=== PATIENT | female | born 1995 ===

== ENCOUNTER 2017-01-30 16:42 | Emergency (ER) | payer MEDICAID ==
[2017-01-30 16:43] VITALS: BMI 22.6
[2017-01-30] MEDS ORDERED: Alum-Mag Hydrox-Simethicone Susp (30 mL) PO STA (18:26)
[2017-01-30 18:37] VITALS: PULSE 89; RESP 20; O2SAT 99
[2017-01-30] MEDS ORDERED: Alum-Mag Hydrox-Simethicone Susp (30 mL) ONE (18:37)
[2017-01-30 18:47] VITALS: BP 103/69; TEMP 97.9
[2017-01-30 18:52] LABS: RBC URINE 1 /hpf (0-3); URINE BACTERIA RARE (<OCC); URINE BILIRUBIN NEGATIVE (NEGATIVE); URINE BLOOD 2+ (NEGATIVE); URINE COLOR Yellow (YELLOW); URINE GLUCOSE (UA) NORMAL (Normal); URINE KETONE NEGATIVE (NEGATIVE); URINE LEUKOCYTE ESTERASE NEG Leu/uL (Negative); URINE PROTEIN NEGATIVE (NEGATIVE); URINE UROBILINOGEN NORMAL mg/dL (0.2-1.0); WBC URINE < 1 /hpf (0-5)
--- NOTE | 2017-01-30 19:35 | C.PDOC ---
History Of Present Illness 21 year old female presents to the emergency department with seeking test due to concern from having unprotected sex one month. Patient also notes vague chest discomfort and has has several prior evaluations for similar complaints. She also notes history of acid reflux with severe symptoms for one week when drinking milk. Patient denies any vaginal discharge, abdominal pain, or other complaints at this time. Time Seen by Provider: 01/30/17 18:21 Chief Complaint (Nursing): Chest Pain History Per: Patient History/Exam Limitations: no limitations Onset/Duration Of Symptoms: Hrs (vague chest discomfort ), Persistent (one week of acid reflux symptoms for one week ) Associated Symptoms: denies: Nausea, Dyspnea, Diaphoresis, Syncope Recent travel outside of the [place]: No Additional History Per: Prior Records Past Medical History Reviewed: Historical Data, Nursing Documentation, Vital Signs Vital Signs: Last Vital Signs Temp 97.9 F 01/30/17 18:32 Pulse 89 01/30/17 18:32 Resp 20 01/30/17 18:32 BP 103/69 01/30/17 18:32 Pulse Ox 99 01/30/17 19:35 - Medical History PMH: Anxiety, Asthma, Bronchitis, Depression Family History: States: Unknown Family Hx - Social History Hx Tobacco Use: No Hx Alcohol Use: No Hx Substance Use: No - Immunization History Hx Tetanus Toxoid Vaccination: Yes Hx Influenza Vaccination: Yes Hx Pneumococcal Vaccination: No Review Of Systems Constitutional: Negative for: Fever, Chills Cardiovascular: Positive for: Other (vague chest discomfort ). Negative for: Palpitations Respiratory: Negative for: Cough, Shortness of Breath Gastrointestinal: Negative for: Nausea, Vomiting, Abdominal Pain, Diarrhea Genitourinary: Negative for: Vaginal Discharge Physical Exam - Physical Exam Appears: Non-toxic, No Acute Distress Skin: Warm, Dry Head: Atraumatic Eye(s): bilateral: Normal Inspection, PERRL, EOMI Oral Mucosa: Moist Neck: Supple Chest: Symmetrical, No Deformity, No Tenderness, Other (No chest rash ) Cardiovascular: Rhythm Regular Respiratory: Normal Breath Sounds, No Rhonchi, No Wheezing Gastrointestinal/Abdominal: Soft, No Tenderness, No Distention, No Guarding, No Rebound Neurological/Psych: Oriented x3 ED Course And Treatment - Laboratory Results Lab Interpretation: Normal (ua neg.) Urine POC: Negative ECG: Interpreted By Me ECG Rhythm: Sinus Rhythm ECG Interpretation: Normal Rate From EC O2 Sat by Pulse Oximetry: 99 Pulse Ox Interpretation: Normal Medical Decision Making Medical Decision Making: GERD- continue pepcid/maalox Not , no uti Disposition Doctor Will See Patient In The: Office Counseled Patient/Family Regarding: Studies Performed, Diagnosis - Disposition Referrals: [facility] [Outside] [facility] [Outside] Alen Reyes MD [Staff Provider] - Disposition: HOME/ ROUTINE Disposition Time: 19:34 Condition: GOOD Additional Instructions: GERD: continue pepcid 20 mg @ night to lower stomach acid Maalox 30 cc's (one tablespoon) 5x/day as needed Your test is NEGATIVE Seek further STD evaluation @ the [facility] as needed. Instructions: Gastroesophageal Reflux Disease (ED) Forms: [employer] (Belizean) - Clinical Impression Clinical Impression: Acid reflux, Chest discomfort, Encounter for test - Scribe Statement The provider has reviewed the documentation as recorded by the Scribe Chelly Bowie All medical record entries made by the Scribe were at my direction and personally dictated by me. I have reviewed the chart and agree that the record accurately reflects my personal performance of the history, physical exam, medical decision making, and the department course for this patient. I have also personally directed, reviewed, and agree with the discharge instructions and disposition.
--- NOTE | 2017-02-03 21:47 | CARD ---
APPROVED REPORT EKG Measurement Heart [id number] <Conclusion> Normal sinus rhythm Normal ECG
== END 2017-01-30 19:42 | disposition home or self-care (01) ==
LOC: C.ER 16:42
DX: Z32.02 Encounter for pregnancy test, result negative (principal); K21.9 Gastro-esophageal reflux disease without esophagitis; R07.89 Other chest pain

== ENCOUNTER 2017-06-27 14:27 | Emergency (ER) | payer MEDICAID ==
[2017-06-27 14:27] VITALS: BMI 22.6
[2017-06-27 14:36] VITALS: RESP 20
--- NOTE | 2017-06-27 14:49 | C.PDOC ---
History Of Present Illness 21 year old female with a history of asthma, presents to the ED with complaints of URI symptoms associated with nasal congestion and dry cough for the past 2 weeks. Pt sts, for psat few days was feeling weak, developed chest tightness. Pt admits, no asthma medication at home, ran out. Patient also c/o suprapubic pain, " lower abdominal cramps" for past few days. LNMP- 05/24/17. Otherwise, pt denies high fever, chills, dizziness, drooling, dysphagia, dyspnea, SOB, V/D , back pain, UTI sx, or any other complaints at this time. Time Seen by Provider: 06/27/17 14:35 Chief Complaint (Nursing): Flu-like Symptoms History Per: Patient Onset/Duration Of Symptoms: Gradual Past Medical History Reviewed: Historical Data, Nursing Documentation, Vital Signs Vital Signs: Last Vital Signs Temp 97.9 F 06/27/17 14:36 Pulse 79 06/27/17 14:36 Resp 20 06/27/17 14:36 BP 95/59 L 06/27/17 14:36 Pulse Ox 100 06/27/17 15:57 - Medical History PMH: Anxiety, Asthma, Bronchitis, Depression Surgical History: No Surg Hx Family History: States: Unknown Family Hx - Social History Hx Tobacco Use: No Hx Alcohol Use: No Hx Substance Use: No - Immunization History Hx Tetanus Toxoid Vaccination: Yes Hx Influenza Vaccination: Yes Hx Pneumococcal Vaccination: No Review Of Systems Except As Marked, All Systems Reviewed And Found Negative. Constitutional: Positive for: Chills, Weakness. Negative for: Fever ENT: Positive for: Nose Discharge, Nose Congestion, Throat Pain. Negative for: Ear Discharge Cardiovascular: Negative for: Chest Pain, Palpitations, Edema Respiratory: Positive for: Cough. Negative for: Shortness of Breath, Wheezing Gastrointestinal: Positive for: Abdominal Pain. Negative for: Nausea, Vomiting , Diarrhea Genitourinary: Negative for: Dysuria, Frequency Musculoskeletal: Negative for: Neck Pain, Back Pain Skin: Negative for: Rash Neurological: Negative for: Weakness, Numbness, Altered Mental Status, Headache , Dizziness Physical Exam - Physical Exam Appears: Well, Non-toxic, No Acute Distress Skin: Normal Color, Warm, Dry, No Rash Head: Normacephalic Eye(s): bilateral: PERRL Ear(s): Bilateral: Normal Nose: No Flaring, Discharge (B/L clear) Oral Mucosa: Moist, No Drooling Tongue: Normal Appearing Lips: Normal Appearing Throat: Erythema (mild B/L), No Drooling Neck: Trachea Midline, Supple, Other ((-) meningeal sign) Cardiovascular: Rhythm Regular, No JVD Respiratory: No Decreased Breath Sounds, No Accessory Muscle Use, No Stridor, Wheezing (scattered Right base, BS equal B/L) Gastrointestinal/Abdominal: Soft, Tenderness (mild spurapubic), No Distention, No Guarding Back: No CVA Tenderness Extremity: Normal ROM, No Deformity, No Swelling Neurological/Psych: Oriented x3, Normal Speech ED Course And Treatment - Laboratory Results Result Diagrams: 06/27/17 15:11 06/27/17 15:11 Lab Interpretation: No Acute Changes Urine POC: Negative O2 Sat by Pulse Oximetry: 100 Pulse Ox Interpretation: Normal - Radiology CXR: Interpreted by Me, Viewed By Me CXR Interpretation: Yes: No Acute Disease Progress Note: On re-eval, pt is afebrile, hemodynamicaly stable. Non-toxic. PulseOx 100% RA. ENT: no acute findings. Neck: SUpple, (-) meningeal sign. Lungs: CTA B/L, BS equal B/L. CVS: (+)S1S2, reg. Abd: benign, (-) guarding, (- ) rebound, (-) localized tenderness. back: (-) CVA tenderness. Blood wood review and appears without acute abnoramlities. CXR- normal study. Influenza ( -). UA- normal study. Pt has clinical findings c/w bronchitis, hx of asthma. Pt advised. ref. to f/u with PMD in 2-3 days for re-eavl. return to ED if any worsening or new changes. Disposition Counseled Patient/Family Regarding: Studies Performed, Diagnosis, Need For Followup, Rx Given - Disposition Referrals: Alen Reyes MD [Staff Provider] - Disposition: HOME/ ROUTINE Disposition Time: 16:26 Condition: STABLE Additional Instructions: ENCOURAGE FLUIDS TAKE MEDICATION PRESCRIBED FOLLOW UP WITH PMD IN 2-3 DAYS FOR RE-EVALUATION. RETURN TO ED IF ANY WORSENING OR NEW CHANGES. Prescriptions: Albuterol HFA [Ventolin HFA 90 mcg/actuation (8 g)] 1 puff IH Q6 #1 inhaler Azithromycin 1 tab PO DAILY #4 tab Benzonatate [Tessalon Perle] 100 mg PO TID #14 capsule Prednisone [Deltasone] 40 mg PO DAILY #6 tablet Instructions: Acute Bronchitis (ED), Asthma (ED) Forms: [employer] (Romanian) - Clinical Impression Clinical Impression: Asthma, Bronchitis
[2017-06-27] MEDS ORDERED: Sodium Chloride 0.9% 500 ML IV ONE (14:53)
[2017-06-27] MEDS ORDERED: MethylPREDNISolone 40 mg Vial IVP STA (14:53)
[2017-06-27] MEDS ORDERED: Albuterol-Ipratrop 3 mg / 0.5 (3 ml) UD IH STA (14:53)
[2017-06-27 15:22] LABS: BASO # 0.1 K/uL (0.0-0.2); BASO % 0.5 % (0.0-2.0); EOS # 0.2 K/uL (0.0-0.7); HEMATOCRIT 38.2 % (34.0-47.0); LYMPH # 1.8 K/uL (1.0-4.3); LYMPH % 15.9 % (20.0-40.0); MEAN CELL VOLUME 78.4 fL (81.0-99.0); MEAN CORPUSCULAR HEMOGLOBIN 26.8 pg (27.0-31.0); MEAN CORPUSCULAR HGB CONC 34.1 g/dL (33.0-37.0); MEAN PLATELET VOLUME 8.6 fL (7.2-11.7); MONO # 0.8 K/uL (0.0-0.8); MONO % 7.3 % (0.0-10.0); NRBC % 0.1 % (0.0-2.0); RED CELL DISTRIBUTION WIDTH 14.3 % (11.5-14.5); WHITE BLOOD COUNT 11.4 K/uL (4.8-10.8)
--- NOTE | 2017-06-27 15:44 | RAD ---
HISTORY: COMPARISON: 08/30/2015 TECHNIQUE: Chest PA and lateral FINDINGS: LINES AND TUBES: None. LUNG AND PLEURA: The lungs are well inflated and clear. HEART AND MEDIASTINUM: The heart is not enlarged. The hilar and mediastinal contours are within normal limits. SKELETAL STRUCTURES: The bony structures are within normal limits for the patient's age. VISUALIZED UPPER ABDOMEN: Normal. OTHER FINDINGS: None. IMPRESSION: No active pulmonary disease.
[2017-06-27] MEDS ORDERED: MethylPREDNISolone 40 mg Vial ONE (15:47)
[2017-06-27] MEDS ORDERED: Albuterol-Ipratrop 3 mg / 0.5 (3 ml) UD ONE (15:47)
[2017-06-27 15:49] LABS: BLOOD UREA NITROGEN 13 mg/dL (7-17); CALCIUM 8.4 mg/dl (8.6-10.4); CARBON DIOXIDE 29 mmol/L (22-30); CHLORIDE 101 mmol/L (98-107); GFR AFRICAN-AMERICAN > 60; GLUCOSE,RANDOM 69 mg/dL (65-105); SODIUM 137 mmol/L (132-148)
[2017-06-27 16:16] LABS: RBC URINE 2 /hpf (0-3); TRANSITIONAL EPITHIAL < 1 /hpf (0-3); URINE BACTERIA RARE (<OCC); URINE BILIRUBIN NEGATIVE (NEGATIVE); URINE BLOOD NEGATIVE (NEGATIVE); URINE COLOR Yellow (YELLOW); URINE GLUCOSE (UA) NORMAL (Normal); URINE KETONE NEGATIVE (NEGATIVE); URINE LEUKOCYTE ESTERASE TRACE Leu/uL (Negative); URINE PROTEIN NEGATIVE (NEGATIVE); URINE UROBILINOGEN NORMAL mg/dL (0.2-1.0); WBC URINE 4 /hpf (0-5)
[2017-06-27 17:04] VITALS: BP 102/68; PULSE 64; TEMP 98.1; O2SAT 98
== END 2017-06-27 17:05 | disposition home or self-care (01) ==
LOC: C.ER 14:27
DX: J45.909 Unspecified asthma, uncomplicated (principal); F17.210 Nicotine dependence, cigarettes, uncomplicated
CPT/HCPCS: 71020; 80048; 81001; 84703; 85025; 87086; 87804; 96361; 96374; 96375; 99283; J1885; J2920; J7040

== ENCOUNTER 2017-11-08 20:40 | Emergency (ER) | payer MEDICAID ==
[2017-11-08 20:40] VITALS: BMI 22.6
[2017-11-08 21:31] VITALS: BP 109/70; PULSE 82; RESP 20; TEMP 98.3; O2SAT 100
[2017-11-08 21:58] LABS: SQUAMOUS EPITHIAL 1 /hpf (0-5); URINE BILIRUBIN NEGATIVE (NEGATIVE); URINE BLOOD NEGATIVE (NEGATIVE); URINE CLARITY Clear (Clear); URINE COLOR Yellow (YELLOW); URINE GLUCOSE (UA) NORMAL (Normal); URINE LEUKOCYTE ESTERASE NEG Leu/uL (Negative); URINE PROTEIN NEGATIVE (NEGATIVE); URINE UROBILINOGEN NORMAL mg/dL (0.2-1.0)
[2017-11-08 22:02] LABS: HCG,QUALITATIVE URINE NEGATIVE (NEGATIVE)
[2017-11-08] MEDS ORDERED: cefTRIAXone (Rocephin) 250 mg Inj IM STA (23:40)
--- NOTE | 2017-11-09 00:28 | C.PDOC ---
History Of Present Illness 22yo female, presents to ED with complaints of persistent UTI symptoms. Patient states she was evaluated by her OBGYN, diagnosed with a UTI and for the past 2 months she has been taking antibiotics intermittently with no resolution in symptoms. She also reports for the past 2 weeks, she has been having lower abdominal pain, vaginal discharge and dysuria. She states she is sexually active with one partner and does not use protection. She denies any fever, chills, vaginal bleeding and offers no other complaints. Time Seen by Provider: 11/08/17 23:05 Chief Complaint (Nursing): Abdominal Pain History Per: Patient History/Exam Limitations: no limitations Onset/Duration Of Symptoms: Intermittent Episodes, Persistent Current Symptoms Are (Timing): Still Present Location Of Pain/Discomfort: Suprapubic Associated Symptoms: Urinary Symptoms. denies: Fever, Chills Past Medical History Reviewed: Historical Data, Nursing Documentation, Vital Signs Vital Signs: Last Vital Signs Temp 98.3 F 11/08/17 21:27 Pulse 82 11/08/17 21:27 Resp 20 11/08/17 21:27 BP 109/70 11/08/17 21:27 Pulse Ox 100 11/09/17 12:48 - Medical History PMH: Anxiety, Asthma, Bronchitis, Depression Surgical History: No Surg Hx Family History: States: No Known Family Hx, Unknown Family Hx - Social History Hx Tobacco Use: No Hx Alcohol Use: No Hx Substance Use: No - Immunization History Hx Tetanus Toxoid Vaccination: Yes Hx Influenza Vaccination: Yes Hx Pneumococcal Vaccination: No Review Of Systems Except As Marked, All Systems Reviewed And Found Negative. Constitutional: Negative for: Fever, Chills Gastrointestinal: Positive for: Abdominal Pain (suprapubic) Genitourinary: Positive for: Dysuria, Frequency, Vaginal Discharge. Negative for: Vaginal Bleeding Physical Exam - Physical Exam Appears: Non-toxic, No Acute Distress Skin: Normal Color, Warm, Dry Head: Atraumatic, Normacephalic Eye(s): bilateral: Normal Inspection, PERRL Oral Mucosa: Moist Neck: Normal ROM, Supple Chest: Symmetrical Cardiovascular: Rhythm Regular Respiratory: Normal Breath Sounds Gastrointestinal/Abdominal: Normal Exam, Soft, No Tenderness Pelvic: Vaginal Discharge (fishy discharge), No Cervical Motion Tenderness Extremity: Normal ROM Neurological/Psych: Oriented x3 ED Course And Treatment O2 Sat by Pulse Oximetry: 100 (RA) Pulse Ox Interpretation: Normal Progress Note: Patient given Motrin, Rocephin and Zithromax in ER. Chlamydia and GC cultures sent. Patinet to be discharged home on antibiotics and instructed to follow up with OBGYN in 2-3 days. Disposition Counseled Patient/Family Regarding: Diagnosis, Need For Followup, Rx Given - Disposition [facility]Outside] Disposition: HOME/ ROUTINE Disposition Time: 00:25 Condition: STABLE Additional Instructions: Follow up with your BUSINESS DIVISION CHAIR doctor Follow up with PMD Return to ER if worse Prescriptions: metroNIDAZOLE [Flagyl] 500 mg PO BID #14 tab Instructions: Bacterial Vaginosis (DC) Forms: [employer] (Croatian) - POA Present On Arrival: Blood Incompatibility - Clinical Impression Clinical Impression: Cervicitis, Bacterial vaginosis - PA / RN PERIOPERATIVE / Resident Statement MD/DO has reviewed & agrees with the documentation as recorded. - Scribe Statement The provider has reviewed the documentation as recorded by the Scribe (Ro Guzman) Provider Attestation: All medical record entries made by the Scribe were at my direction and personally dictated by me. I have reviewed the chart and agree that the record accurately reflects my personal performance of the history, physical exam, medical decision making, and the department course for this patient. I have also personally directed, reviewed, and agree with the discharge instructions and disposition.
== END 2017-11-09 00:33 | disposition home or self-care (01) ==
LOC: C.ER 20:40
DX: N72 Inflammatory disease of cervix uteri (principal); N76.0 Acute vaginitis; B96.89 Other specified bacterial agents as the cause of diseases classified elsewhere
CPT/HCPCS: 81001; 84703; 87491; 87591; 96372; 99284; J0696

== ENCOUNTER 2018-04-18 19:53 | Emergency (ER) | payer MEDICAID ==
[2018-04-18 19:53] VITALS: BMI 22.6
[2018-04-18 20:03] VITALS: BP 112/64; PULSE 78; RESP 16; TEMP 98.6; O2SAT 98
[2018-04-18] MEDS ORDERED: MethylPREDNISolone 40 mg Vial IVP STA (20:31)
[2018-04-18] MEDS ORDERED: DiphenhydrAMINE 50 mg/ml Inj IVP STA (20:31)
[2018-04-18] MEDS ORDERED: DiphenhydrAMINE 50 mg/ml Inj ONE (20:35)
--- NOTE | 2018-04-18 21:56 | C.PDOC ---
History Of Present Illness 22 year old female presents to the ED c/o generalized itching, tongues swelling and throat itching that starred tonight. Patient states she is allergic to pepper, patient reports she accidentally ate spicy food today. Patient denies fever, chills, nausea, vomit, SOB, cough, dizziness. Time Seen by Provider: 04/18/18 20:18 Chief Complaint (Nursing): Allergic Reaction History Per: Patient History/Exam Limitations: no limitations Onset/Duration Of Symptoms: Hrs Current Symptoms Are (Timing): Still Present Context: Food Possible Cause: Food Associated Symptoms: Skin Rash, Swelling, Itching Home/EMS Treatment: None Recent travel outside of the [place]: No Additional History Per: Patient Past Medical History Reviewed: Historical Data, Nursing Documentation, Vital Signs Vital Signs: Last Vital Signs Temp 98.6 F 04/18/18 19:55 Pulse 78 04/18/18 19:55 Resp 16 04/18/18 19:55 BP 112/64 04/18/18 19:55 Pulse Ox 98 04/18/18 19:55 - Medical History PMH: Anxiety, Asthma, Bronchitis, Depression Surgical History: No Surg Hx Family History: States: Unknown Family Hx - Social History Hx Tobacco Use: No Hx Alcohol Use: Yes Hx Substance Use: No - Immunization History Hx Tetanus Toxoid Vaccination: Yes Hx Influenza Vaccination: Yes Hx Pneumococcal Vaccination: No Review Of Systems Constitutional: Negative for: Fever, Chills ENT: Positive for: Mouth Swelling, Throat Swelling Respiratory: Negative for: Cough, Shortness of Breath Gastrointestinal: Negative for: Nausea, Vomiting Skin: Positive for: Rash Neurological: Negative for: Weakness, Numbness Physical Exam - Physical Exam Appears: Non-toxic, No Acute Distress Skin: Normal Color, Warm, Dry, Rash (diffuse urticaria) Head: Atraumatic, Normacephalic Eye(s): bilateral: Normal Inspection Oral Mucosa: Moist Tongue: No Swelling Lips: No Swelling Throat: Normal, No Erythema, No Exudate, No Drooling Neck: Normal ROM, No Midline Cervical Tenderness, Supple Chest: Symmetrical Cardiovascular: Rhythm Regular Respiratory: Normal Breath Sounds, No Rales, No Rhonchi, No Wheezing Extremity: Normal ROM Neurological/Psych: Oriented x3, Normal Speech, Normal Cognition Gait: Steady ED Course And Treatment O2 Sat by Pulse Oximetry: 98 (ON RA) Pulse Ox Interpretation: Normal Progress Note: Plan: - Benadryl 25 mg iVP. - Pepcid 20 mg IVP. - Solumedrol 125 mg IVP. Patient was advised to follow up with PMD. Patient reports feeling better after medications, no longer feeling itchy, SOB or having difficulty breathing. Disposition Counseled Patient/Family Regarding: Diagnosis, Need For Followup - Disposition Disposition: HOME/ ROUTINE Disposition Time: 21:51 Condition: STABLE Additional Instructions: Please follow up with PMD Take all medications prescribed Return to ER if worse Prescriptions: DiphenhydrAMINE [Benadryl] 25 mg PO QID #20 cap Famotidine [Pepcid] 20 mg PO DAILY #10 tab predniSONE [Prednisone] 40 mg PO DAILY #8 tab Instructions: Hives Forms: [employer] (American) - Clinical Impression Clinical Impression: Allergic reaction - PA / SURVEY TECHNICIAN / Resident Statement MD/DO has reviewed & agrees with the documentation as recorded. - Scribe Statement The provider has reviewed the documentation as recorded by the Scribe Adrien Hamilton All medical record entries made by the Sarahibmelissa were at my direction and personally dictated by me. I have reviewed the chart and agree that the record accurately reflects my personal performance of the history, physical exam, medic al decision making, and the department course for this patient. I have also personally directed, reviewed, and agree with the discharge instructions and disposition.
== END 2018-04-18 22:21 | disposition home or self-care (01) ==
LOC: C.ER 19:53
DX: T78.40XA Allergy, unspecified, initial encounter (principal)
CPT/HCPCS: 96374; 96375; 99284; J1200; J2920

== ENCOUNTER 2018-05-02 14:47 | Emergency (ER) | payer MEDICAID ==
[2018-05-02 14:48] VITALS: BMI 22.6
[2018-05-02 14:55] VITALS: BP 119/72; PULSE 66; RESP 18; TEMP 98.4; O2SAT 99
--- NOTE | 2018-05-02 15:04 | C.PDOC ---
History Of Present Illness 22 y/o female presents to the ED complaining of recurrent allergic reaction today. Patient states symptoms began after accidental exposure to pepper. Patient was seen 04/18 for similar complaint but states did not take prednisone, it went away by itself and I did not know what it was for. Otherwise denies any SOB, tongue/throat swelling, nausea, vomiting, or other associated symptoms. Time Seen by Provider: 05/02/18 14:57 Chief Complaint (Nursing): Allergic Reaction History Per: Patient History/Exam Limitations: no limitations Onset/Duration Of Symptoms: Hrs Current Symptoms Are (Timing): Still Present Past Medical History Reviewed: Historical Data, Nursing Documentation, Vital Signs Vital Signs: Last Vital Signs Temp 98.4 F 05/02/18 14:54 Pulse 66 05/02/18 14:54 Resp 18 05/02/18 14:54 BP 119/72 05/02/18 14:54 Pulse Ox 99 05/02/18 14:54 - Medical History PMH: Anxiety, Asthma, Bronchitis, Depression Family History: States: Unknown Family Hx - Social History Hx Tobacco Use: No Hx Alcohol Use: Yes Hx Substance Use: No - Immunization History Hx Tetanus Toxoid Vaccination: Yes Hx Influenza Vaccination: Yes Hx Pneumococcal Vaccination: No Review Of Systems Except As Marked, All Systems Reviewed And Found Negative. ENT: Negative for: Mouth Swelling, Throat Swelling Respiratory: Negative for: Shortness of Breath Gastrointestinal: Negative for: Nausea, Vomiting Skin: Positive for: Other (Itchiness) Physical Exam - Physical Exam Appears: Non-toxic, No Acute Distress Skin: Warm, Dry, Other (Generalized hives, active scratching self) Head: Atraumatic, Normacephalic Eye(s): bilateral: Normal Inspection, PERRL, EOMI Oral Mucosa: Moist Tongue: No Swelling, Other (No angioedema) Lips: Normal Appearing, No Swelling Throat: Normal (airway is patent), No Erythema, No Drooling Chest: Symmetrical Cardiovascular: Rhythm Regular Respiratory: No Accessory Muscle Use, Other (NARD) Pulses: Left Radial: Normal, Right Radial: Normal Neurological/Psych: Oriented x3, Normal Speech ED Course And Treatment O2 Sat by Pulse Oximetry: 99 (RA) Pulse Ox Interpretation: Normal Medical Decision Making Medical Decision Making: Impression: allergic reaction Patient given 50 mg Benadryl PO and 60 mg Prednisone PO. Patient remains AAOx3, breathing easy and non-labored, in no acute distress. Reports feeling better after treatment. Plan is to discharge patient home. Provided with prescriptions for PO steroid and benadryl. Disposition Counseled Patient/Family Regarding: Diagnosis, Need For Followup, Rx Given - Disposition Referrals: YOUR,PMD [Other] Disposition: HOME/ ROUTINE Disposition Time: 15:03 Condition: IMPROVED Prescriptions: DiphenhydrAMINE [Benadryl] 50 mg PO TID PRN #30 cap PRN Reason: Itching / Pruritus predniSONE [Prednisone] 60 mg PO DAILY #12 tab Instructions: Hives (DC) Forms: [employer] (New Zealander) - POA Present On Arrival: None - Clinical Impression Clinical Impression: Urticaria - Scribe Statement The provider has reviewed the documentation as recorded by the Scribe (Glory Julio) Provider Attestation: All medical record entries made by the Scribe were at my direction and personally dictated by me. I have reviewed the chart and agree that the record accurately reflects my personal performance of the history, physical exam, medical decision making, and the department course for this patient. I have also personally directed, reviewed, and agree with the discharge instructions and disposition.
== END 2018-05-02 15:12 | disposition home or self-care (01) ==
LOC: C.ER 14:47
DX: L50.9 Urticaria, unspecified (principal)

== ENCOUNTER 2018-05-10 02:50 | Emergency (ER) | payer MEDICAID ==
[2018-05-10 02:50] VITALS: BMI 22.6
--- NOTE | 2018-05-10 03:13 | C.PDOC ---
History Of Present Illness Patient presents to the ER with a complaint of feeling weak, lightheaded, and SOB worsening over the last day or so. Patient has a Hx of anxiety. She is currently speaking in complete sentences. Denies chest pain, fever, chills, naus ea, or vomiting. Time Seen by Provider: 05/10/18 03:13 Chief Complaint (Nursing): Dizziness/Lightheaded History Per: Patient History/Exam Limitations: no limitations Onset/Duration Of Symptoms: Days Current Symptoms Are (Timing): Still Present Associated Symptoms Preceding Syncopal Episode: No Predromal Symptoms (Sudden Onset) Seizure Or Post-ictal Symptoms: None Possible Causative Factor(s): Other (Anxiety) Fall Associated With With Symptoms: No Severity: Mild Pain Scale Rating Of: 3 Recent travel outside of the [place]: No - Symptoms Of CVA Associated Symptoms: denies: Impaired Speech, Seizure Activity, New Vision Deficit(Left), New Vision Deficit(Right), Decreased Ability To Walk, New Confusion Past Medical History Reviewed: Historical Data, Nursing Documentation, Vital Signs Vital Signs: Last Vital Signs Temp 98.3 F 05/10/18 02:55 Pulse 74 05/10/18 02:55 Resp 14 05/10/18 02:55 BP 95/48 L 05/10/18 02:55 Pulse Ox 99 05/10/18 02:55 - Medical History PMH: Anxiety, Asthma, Bronchitis, Depression Family History: States: No Known Family Hx - Social History Hx Tobacco Use: No Hx Alcohol Use: Yes Hx Substance Use: No - Immunization History Hx Tetanus Toxoid Vaccination: Yes Hx Influenza Vaccination: Yes Hx Pneumococcal Vaccination: No Review Of Systems Constitutional: Positive for: Weakness. Negative for: Fever, Chills Cardiovascular: Positive for: Light Headedness. Negative for: Chest Pain Respiratory: Positive for: Shortness of Breath Gastrointestinal: Negative for: Nausea, Vomiting Physical Exam - Physical Exam Appears: Non-toxic Skin: Warm, Dry Head: Normacephalic Oral Mucosa: Moist Chest: Symmetrical, No Tenderness Cardiovascular: Rhythm Regular Respiratory: No Rales, No Rhonchi, No Wheezing Gastrointestinal/Abdominal: Soft, No Tenderness Neurological/Psych: Oriented x3 ED Course And Treatment - Laboratory Results Result Diagrams: 05/10/18 03:48 05/10/18 03:48 ECG: Interpreted By Me, Viewed By Me ECG Rhythm: Sinus Rhythm (71), Nonspecific Changes O2 Sat by Pulse Oximetry: 99 (Room air) Pulse Ox Interpretation: Normal Progress Note: EKG, blood work, and urinalysis ordered. IV fluids administered. Reevaluation Time: 04:43 Reassessment Condition: Improved Disposition Counseled Patient/Family Regarding: Studies Performed, Diagnosis, Need For Followup, Rx Given - Disposition Referrals: Alen Reyes MD [Staff Provider] - Disposition: HOME/ ROUTINE Disposition Time: 03:13 Condition: FAIR Additional Instructions: Please return if symptoms recur Prescriptions: Lorazepam [Ativan] 0.5 mg PO BID PRN #10 tab PRN Reason: Anxiety Instructions: Anxiety, Adult (DC) Forms: [employer] (Croatian) - Clinical Impression Clinical Impression: Anxiety - Scribe Statement The provider has reviewed the documentation as recorded by the Scribe Farrukh Baker All medical record entries made by the Scribe were at my direction and personally dictated by me. I have reviewed the chart and agree that the record accurately reflects my personal performance of the history, physical exam, medical decision making, and the department course for this patient. I have also personally directed, reviewed, and agree with the discharge instructions and disposition.
[2018-05-10] MEDS ORDERED: Sodium Chloride 0.9% 1,000 ML IV ONE (03:28)
[2018-05-10 03:45] LABS: SQUAMOUS EPITHIAL 1 /hpf (0-5); URINE BILIRUBIN NEGATIVE (NEGATIVE); URINE BLOOD NEGATIVE (NEGATIVE); URINE CLARITY Clear (Clear); URINE COLOR Yellow (YELLOW); URINE GLUCOSE (UA) NORMAL (Normal); URINE LEUKOCYTE ESTERASE NEG Leu/uL (Negative); URINE PROTEIN NEGATIVE (NEGATIVE); URINE UROBILINOGEN NORMAL mg/dL (0.2-1.0)
[2018-05-10 03:50] LABS: HCG,QUALITATIVE URINE NEGATIVE (NEGATIVE)
[2018-05-10 04:01] LABS: BASO # 0.1 K/uL (0.0-0.2); BASO % 0.5 % (0.0-2.0); EOS # 0.1 K/uL (0.0-0.7); EOS % 1.2 % (0.0-4.0); HEMOGLOBIN 12.5 g/dL (11.0-16.0); LYMPH # 4.3 K/uL (1.0-4.3); LYMPH % 35.6 % (20.0-40.0); MEAN CELL VOLUME 79.8 fL (81.0-99.0); MEAN CORPUSCULAR HEMOGLOBIN 27.9 pg (27.0-31.0); MEAN PLATELET VOLUME 8.4 fL (7.2-11.7); MONO # 0.9 K/uL (0.0-0.8); MONO % 7.7 % (0.0-10.0); NEUT # 6.6 K/uL (1.8-7.0); RBC 4.49 Mil/uL (3.80-5.20); RED CELL DISTRIBUTION WIDTH 13.4 % (11.5-14.5); WHITE BLOOD COUNT 11.9 K/uL (4.8-10.8)
[2018-05-10 04:10] LABS: ALB/GLOB RATIO 1.6 (1.0-2.1); ALT/SGPT 33 U/L (9-52); AST/SGOT 26 U/L (14-36); BLOOD UREA NITROGEN 20 mg/dL (7-17); CALCIUM 8.8 mg/dl (8.6-10.4); GFR NON-AFRICAN AMERICAN > 60
[2018-05-10 04:21] LABS: BARBITURATES, UR NEGATIVE (NEGATIVE); BENZODIAZEPINES, UR NEGATIVE (NEGATIVE); OPIATES, UR NEGATIVE (NEGATIVE); PHENCYCLIDINE, UR NEGATIVE (NEGATIVE)
[2018-05-10 04:35] VITALS: BP 98/66; PULSE 63; RESP 16; TEMP 98
[2018-05-10 04:43] VITALS: O2SAT 99
--- NOTE | 2018-05-11 19:44 | CARD ---
APPROVED REPORT Date of service: 05/10/2018 EKG Measurement Heart [id number] <Conclusion> Normal sinus rhythm with sinus arrhythmia Normal ECG
== END 2018-05-10 04:50 | disposition home or self-care (01) ==
LOC: C.ER 02:50
DX: F41.9 Anxiety disorder, unspecified (principal); F32.9 Major depressive disorder, single episode, unspecified; J45.909 Unspecified asthma, uncomplicated
CPT/HCPCS: 80053; 80324; 80345; 80346; 80349; 80353; 80358; 80361; 81001; 83992; 84443; 84703; 85025; 93005; 96360; 99285; J7030

== ENCOUNTER 2018-07-24 18:36 | Emergency (ER) | payer MEDICAID | END 2018-07-24 22:23 | disposition home or self-care (01) | LOC: C.ER 18:36 ==

== ENCOUNTER 2018-08-08 23:59 | Emergency (ER) | payer MEDICAID ==
[2018-08-08 23:59] VITALS: BMI 22.6
[2018-08-09 00:25] VITALS: PULSE 78; O2SAT 98
[2018-08-09] MEDS ORDERED: Sodium Chloride 0.9% 1,000 ML IV ONE (00:35)
--- NOTE | 2018-08-09 00:35 | C.PDOC ---
History Of Present Illness Patient who is 5-6 weeks presents to the ER with a complaint of abdominal pain, nausea, vomiting, and decreased po intake. Denies fever or chills. Time Seen by Provider: 08/09/18 00:34 Chief Complaint (Nursing): Abdominal Pain History Per: Patient History/Exam Limitations: no limitations Onset/Duration Of Symptoms: Hrs Current Symptoms Are (Timing): Still Present Severity: Moderate Pain Scale Rating Of: 4 Location Of Pain/Discomfort: Diffuse, Epigastric Radiation Of Pain To:: None Quality Of Discomfort: Unable To Describe Associated Symptoms: Nausea, Vomiting. denies: Fever, Chills Exacerbating Factors: None Alleviating Factors: None Recent travel outside of the [place]: No Past Medical History Reviewed: Historical Data, Nursing Documentation, Vital Signs Vital Signs: Last Vital Signs Temp 98.8 F 08/09/18 00:23 Pulse 78 08/09/18 00:23 Resp 16 08/09/18 00:23 BP 114/75 08/09/18 00:23 Pulse Ox 98 08/09/18 00:23 - Medical History PMH: Anxiety, Asthma, Bronchitis, Depression Family History: States: No Known Family Hx - Social History Hx Tobacco Use: No Hx Alcohol Use: Yes Hx Substance Use: No - Immunization History Hx Tetanus Toxoid Vaccination: Yes Hx Influenza Vaccination: Yes (2018) Hx Pneumococcal Vaccination: No Review Of Systems Constitutional: Negative for: Fever, Chills Cardiovascular: Negative for: Chest Pain, Palpitations Respiratory: Negative for: Cough, Shortness of Breath Gastrointestinal: Positive for: Nausea, Vomiting, Abdominal Pain Neurological: Negative for: Weakness, Numbness Physical Exam - Physical Exam Appears: Non-toxic Skin: Warm, Dry Head: Normacephalic Oral Mucosa: Moist Neck: Trachea Midline, Supple Chest: Symmetrical, No Tenderness Cardiovascular: Rhythm Regular Respiratory: No Rales, No Rhonchi, No Wheezing Gastrointestinal/Abdominal: Soft, Tenderness (Diffuse, mid epigastric), No Guarding, No Rebound Back: No CVA Tenderness Neurological/Psych: Oriented x3 ED Course And Treatment - Laboratory Results Result Diagrams: 08/09/18 01:23 08/09/18 01:23 O2 Sat by Pulse Oximetry: 98 (Room air) Pulse Ox Interpretation: Normal Progress Note: Blood work, urinalysis, and transvaginal US ordered. Pepcid, zofran, and IV fluids administered. Disposition Counseled Patient/Family Regarding: Studies Performed, Diagnosis, Need For Followup - Disposition Disposition: HOME/ ROUTINE Disposition Time: 00:34 Condition: FAIR Additional Instructions: Please follow up with your grader meat Prescriptions: Metoclopramide [Reglan] 1 tab PO TID PRN #25 tab PRN Reason: Nausea/Vomiting Instructions: - The Second Month, Ovarian Cyst (DC), Nausea and Vomiting of (DC) Forms: [employer] (Georgian) - Clinical Impression Clinical Impression: Hyperemesis arising during , Corpus luteum cyst - Scribe Statement The provider has reviewed the documentation as recorded by the Scribmelissa Baker All medical record entries made by the Sarahibmelissa were at my direction and personally dictated by me. I have reviewed the chart and agree that the record accurately reflects my personal performance of the history, physical exam, medical decision making, and the department course for this patient. I have also personally directed, reviewed, and agree with the discharge instructions and disposition.
[2018-08-09 01:28] LABS: BASO # 0.1 K/uL (0.0-0.2); BASO % 0.6 % (0.0-2.0); EOS # 0.1 K/uL (0.0-0.7); EOS % 1.3 % (0.0-4.0); HEMOGLOBIN 12.2 g/dL (11.0-16.0); LYMPH # 2.5 K/uL (1.0-4.3); MEAN CELL VOLUME 80.8 fL (81.0-99.0); MEAN CORPUSCULAR HEMOGLOBIN 27.7 pg (27.0-31.0); MEAN CORPUSCULAR HGB CONC 34.3 g/dL (33.0-37.0); MEAN PLATELET VOLUME 9.7 fL (7.2-11.7); MONO # 0.6 K/uL (0.0-0.8); MONO % 6.4 % (0.0-10.0); NEUT % 64.7 % (50.0-75.0); RBC 4.42 Mil/uL (3.80-5.20); RED CELL DISTRIBUTION WIDTH 13.2 % (11.5-14.5); WHITE BLOOD COUNT 9.3 K/uL (4.8-10.8)
[2018-08-09 01:34] LABS: HCG,QUALITATIVE URINE POSITIVE (NEGATIVE); SQUAMOUS EPITHIAL 3 /hpf (0-5); URINE BACTERIA RARE (<OCC); URINE BILIRUBIN NEGATIVE (NEGATIVE); URINE BLOOD NEGATIVE (NEGATIVE); URINE CLARITY Hazy (Clear); URINE COLOR Yellow (YELLOW); URINE GLUCOSE (UA) NORMAL (Normal); URINE LEUKOCYTE ESTERASE TRACE Leu/uL (Negative); URINE PROTEIN NEGATIVE (NEGATIVE); URINE UROBILINOGEN NORMAL mg/dL (0.2-1.0)
[2018-08-09 01:38] LABS: INR 1.1; PROTHROMBIN TIME 12.1 SECONDS (9.7-12.2)
[2018-08-09 01:48] LABS: ALB/GLOB RATIO 1.6 (1.0-2.1); ALBUMIN 4.4 g/dL (3.5-5.0); ALT/SGPT 11 U/L (9-52); AST/SGOT 40 U/L (14-36); BLOOD UREA NITROGEN 16 mg/dL (7-17); CALCIUM 8.7 mg/dl (8.6-10.4); GFR NON-AFRICAN AMERICAN > 60; LIPASE 102 U/L (23-300)
[2018-08-09 04:06] VITALS: BP 141/74; RESP 17; TEMP 98.6
--- NOTE | 2018-08-09 11:34 | US ---
Indication: abd pain, n/v Comparison: Ob transvaginal ultrasound performed 07/24/18 Technique: Transabdominal pelvic ultrasound. Findings: The uterus measures approximately 10.7 x 5.9 x 5.3 cm. Anteverted. Cervix length measures approximately 3.1 cm. There is a single intrauterine fetus present. 2 mm yolk sac. The gestational sac measures 2.2 cm and is compatible with a gestational age of 6 weeks 6 days. The crown-rump length measures 0.9 cm and is compatible with a gestational age of 7 weeks 0 days. There is heart motion which measured 122.1 BPM. The right ovary measures 2.8 x 2.5 x 2.7 cm. The left ovary measures 3.2 x 2.0 x 3.4 cm and contains 1.2 x 1.0 x 1.2 cm probable corpus luteal cyst. Blood flow was demonstrated to both ovaries. Impression: Live single intrauterine with estimated gestational age 6 weeks 6 days by gestational sac calculation and 7 weeks 0 days by crown-rump length calculation. heart rate 122.1 bpm. Advise an anomaly screen at 16-18 weeks gestational age 1.2 x 1.0 x 1.2 cm probable left ovarian corpus luteal cyst. Preliminary impression was provided by [employer].
== END 2018-08-09 04:05 | disposition home or self-care (01) ==
LOC: C.ER 23:59
DX: O21.0 Mild hyperemesis gravidarum (principal); O26.891 Other specified pregnancy related conditions, first trimester; N83.10 Corpus luteum cyst of ovary, unspecified side; Z3A.01 Less than 8 weeks gestation of pregnancy
CPT/HCPCS: 76801; 80053; 81001; 81025; 83690; 84702; 84703; 85025; 85610; 85730; 96374; 96375; 99283; J2405; J7030

== ENCOUNTER 2018-10-08 18:00 | Emergency (ER) | payer MEDICAID ==
[2018-10-08 18:20] VITALS: BMI 32.1
[2018-10-08] MEDS ORDERED: Albuterol 0.083% Inhal Sol (2.5 mg/3 mL) UD INH PRN (19:13)
[2018-10-08] MEDS ORDERED: Dexamethasone 4 mg/1 ml IM STA (19:16)
--- NOTE | 2018-10-08 19:25 | C.PDOC ---
History Of Present Illness 22 y/o female pt with hx of asthma presents to the ER c/o cough with yellow sputum, subjective fever, chest pain, SOB and sore throat for x1 day. Pt reports she has +sick contact from her son. Pt has no other complaints at this time. Time Seen by Provider: 10/08/18 19:01 Chief Complaint (Nursing): Cough, Cold, Congestion History Per: Patient History/Exam Limitations: no limitations Onset/Duration Of Symptoms: Days (x1) Current Symptoms Are (Timing): Still Present Past Medical History Reviewed: Historical Data, Nursing Documentation, Vital Signs Vital Signs: Last Vital Signs Temp 99.4 F 10/08/18 18:10 Pulse 96 H 10/08/18 18:10 Resp 20 10/08/18 18:10 BP 131/75 10/08/18 18:10 Pulse Ox 97 10/08/18 18:10 - Medical History PMH: Anxiety, Asthma, Bronchitis, Depression, Chronic Kidney Disease Family History: States: No Known Family Hx - Social History Hx Tobacco Use: No Hx Alcohol Use: Yes Hx Substance Use: No (Denied) - Immunization History Hx Tetanus Toxoid Vaccination: Yes Hx Influenza Vaccination: Yes (2018) Hx Pneumococcal Vaccination: No Review Of Systems Except As Marked, All Systems Reviewed And Found Negative. Constitutional: Positive for: Fever (subjective) ENT: Positive for: Throat Pain Cardiovascular: Positive for: Chest Pain Respiratory: Positive for: Cough, Shortness of Breath, Sputum (yellow ) Physical Exam - Physical Exam Appears: Non-toxic, No Acute Distress Skin: Warm, Dry, No Rash Head: Normacephalic Eye(s): bilateral: Normal Inspection Ear(s): Bilateral: Normal Nose: Normal Oral Mucosa: Moist Throat: Normal, Erythema (mild), No Exudate, No Drooling Neck: Normal ROM, Supple Chest: Symmetrical, No Deformity Cardiovascular: Rhythm Regular Respiratory: Normal Breath Sounds Gastrointestinal/Abdominal: Soft, No Tenderness Extremity: Normal ROM (x4) Neurological/Psych: Oriented x3, Normal Speech ED Course And Treatment O2 Sat by Pulse Oximetry: 97 (RA) Pulse Ox Interpretation: Normal Medical Decision Making Medical Decision Making: Plans: -- albuterol -- decadron Pt reports she is feeling better. Pt is stabilized for discharge. Disposition - Disposition Referrals: [facility] at [facility] [Outside] [facility] at [facility] [Outside] [facility] [Outside] Disposition: HOME/ ROUTINE Disposition Time: 20:50 Condition: GOOD Prescriptions: Albuterol HFA [Ventolin HFA 90 mcg/actuation (8 g)] 2 puff IH [id number] #240 puff Albuterol 0.083% [Albuterol 0.083% Inhal Juany (2.5 mg/3 ml) UD] 2.5 mg IH Q4 #100 neb Instructions: Asthma in Adults, Upper Respiratory Infection (ED) Forms: [employer] (Telugu) - Clinical Impression Clinical Impression: Upper respiratory infection, Asthma - Scribe Statement The provider has reviewed the documentation as recorded by the Scribe Viveros Do Provider Attestation: All medical record entries made by the Scribe were at my direction and personally dictated by me. I have reviewed the chart and agree that the record accurately reflects my personal performance of the history, physical exam, medical decision making, and the department course for this patient. I have also personally directed, reviewed, and agree with the discharge instructions and disposition.
[2018-10-08] MEDS ORDERED: Albuterol 0.083% Inhal Sol (2.5 mg/3 mL) UD ONE (19:30)
[2018-10-08 21:41] VITALS: BP 124/72; PULSE 100; RESP 24; TEMP 98.9
[2018-10-09 12:31] VITALS: O2SAT 97
== END 2018-10-08 21:00 | disposition home or self-care (01) ==
LOC: C.ER 18:00
DX: J06.9 Acute upper respiratory infection, unspecified (principal); J45.909 Unspecified asthma, uncomplicated
CPT/HCPCS: 96372; 99284; J1100